=== PATIENT | male | born 1970 | race Caucasian/White ===

== ENCOUNTER 2017-11-04 10:19 | Emergency (ER) | payer OTHER ==
[2017-11-04] MEDS: ONDANSETRON (ODT) 4 MG TAB ODT (12:44)
[2017-11-04] MEDS: HYDROCODONE/APAP (5/325) TAB PO (12:45)
== END 2017-11-04 12:54 | disposition home or self-care (01) ==
LOC: FTE 10:19
DX: M10.9 Gout, unspecified (principal)
CPT/HCPCS: 99283; Z7502

== ENCOUNTER 2019-05-04 01:35 | Emergency (ER) | payer OTHER ==
[2019-05-04 02:46] LABS: ADD MAN DIFF? NO
[2019-05-04] MEDS: KETOROLAC 30 MG INJ IV (02:47)
[2019-05-04] MEDS: CYCLOBENZAPRINE 10 MG TAB PO (02:47)
[2019-05-04] MEDS: HYDROCODONE/APAP (5/325) TAB PO (02:47)
[2019-05-04 02:48] LABS: BASOPHIL # 0.1 10^3/ul (0.0-0.1); BASOPHILS % 0.7 % (0.0-2.0); EOSINOPHILS # 0.3 10^3/ul (0.0-0.5); EOSINOPHILS % 2.5 % (0.0-7.0); HEMOGLOBIN 14.3 g/dl (14.0-18.0); LYMPHOCYTES # 4.6 10^3/ul (0.8-2.9); LYMPHOCYTES % 44.9 % (15.0-51.0); MEAN CORPUSCULAR HEMOGLOBIN 30.4 pg (29.0-33.0); MEAN CORPUSCULAR HGB CONC 33.3 g/dl (32.0-37.0); MEAN CORPUSCULAR VOLUME 91.5 fl (82.0-101.0); MEAN PLATELET VOLUME 9.3 fl (7.4-10.4); MONOCYTE # 0.9 10^3/ul (0.3-0.9); MONOCYTES % 9.1 % (0.0-11.0); NEUTROPHIL # 4.1 10^3/ul (1.6-7.5); NEUTROPHILS % 40.2 % (39.0-77.0); PLATELET COUNT 327 10^3/UL (140-415); RED CELL DISTRIBUTION WIDTH 13.2 % (11.5-14.5)
[2019-05-04 02:48] LABS: WHITE BLOOD COUNT 10.3 10^3/ul (4.8-10.8)
[2019-05-04 03:08] LABS: ANION GAP 7 (5-13); BLOOD UREA NITROGEN 19 mg/dl (7-20); CALCIUM 9.2 mg/dl (8.4-10.2); CARBON DIOXIDE 27 mmol/L (21-31); CHLORIDE 104 mmol/L (97-110); CREATININE 1.15 mg/dl (0.61-1.24); Estimated GFR > 60 mL/min (>60); GLUCOSE 124 mg/dl (70-220); SODIUM 138 mmol/L (135-144)
[2019-05-04 04:19] LABS: ERYTHROCYTE SEDIMENTATION RATE 16 mm/Hr (0-15)
== END 2019-05-04 04:00 | disposition home or self-care (01) ==
LOC: E/R 01:35
DX: M54.2 Cervicalgia (principal)
CPT/HCPCS: 36415; 80048; 85025; 85651; 96374; 99284-25